=== PATIENT | male | born 1990 | race African-American/Black ===

== ENCOUNTER 2016-12-11 06:57 | Emergency (ER) | payer SELFPAY ==
[~2016-12-11] VITALS: Ht 175.3 cm; Wt 81.6 kg
[~2016-12-11 06:57] MED LIST: AUGMENTIN PO; COLACE PO; IBUPROFEN800 MG PO; PROCTOFOAM-HC10 G1 RC
[2016-12-14 16:02] LABS: CHLAMYDIA TRACH Not Detected (Not Detected); N GONOR Not Detected (Not Detected)
== END 2016-12-11 08:11 | disposition home or self-care (01) ==
LOC: CED 06:57
PROVIDERS: Emergency Medicine
DX: A53.9 Syphilis, unspecified (principal); F17.200 Nicotine dependence, unspecified, uncomplicated
CPT/HCPCS: 86592; 87491; 87591; 96372; 99283; J0561; J0696